=== PATIENT | female | born 1960 | race Caucasian/White ===

== ENCOUNTER → 2016-10-16 | Outpatient (CLI) | payer OTHER ==
[~2016-10-16] MED LIST: ASPI-435 PO; HMLI SC; LISI-729 PO; LSN25 PO; METF1TAB53 PO; NAPR-1169 PO; SAXA1TAB PO; TPRSR50 PO; USTE90IN IM; stelara SC
--- NOTE | 2016-10-16 09:20 | DIAGNOSTIC IMAGING REPORT ---
BILIARY ULTRASOUND CLINICAL HISTORY: Nonalcoholic steatohepatitis COMPARISON STUDY: 06/08/2015 FINDINGS: Liver demonstrates coarsened echotexture. No focal masses are visualized. The liver measuring 20 cm in length. No focal pancreatic masses are visualized. The gallbladder. Sonographically normal. There was no gallbladder wall thickening and no pericholecystic fluid. There was no ductal dilatation. The common bile duct measured 6 mm. There is no right-sided hydronephrosis. There are shadowing echogenic foci within the right kidney consistent with calculi. The largest measures 12 mm. IMPRESSION: 1. Coarsened hepatic echotexture, without evidence of focal mass. The findings are consistent with cirrhosis/hepatitis. 2. Ultrasonographically normal gallbladder. 3. No ductal dilatation 4. Right-sided nephrolithiasis Electronically signed by: Lebron Chavis M.D. 10/16/2016 9:19 AM Dictated Date/Time: 10/16/2016 9:16 AM
== END | disposition home or self-care (01) ==
LOC: C.ULTR 06:41
DX: K75.81 Nonalcoholic steatohepatitis (NASH) (principal); N20.0 Calculus of kidney

== ENCOUNTER → 2016-10-26 | Outpatient (CLI) | payer OTHER ==
[2016-10-26 08:40] LABS: HEMATOCRIT 37.1 % (37-47); MEAN CELL VOLUME 88.3 fL (80-100); MEAN CORPUSCULAR HEMOGLOBIN 31.2 pg (25-34); MEAN CORPUSCULAR HGB CONC 35.3 g/dl (32-36); MEAN PLATELET VOLUME 10.5 fL (7.4-10.4); PLATELET COUNT 187 K/uL (130-400); WHITE BLOOD COUNT 5.71 K/uL (4.8-10.8)
[2016-10-26 09:10] LABS: ESTIMATED AVERAGE GLUCOSE 192 mg/dl; HA1C FLAG Normal (Normal)
[2016-10-26 09:17] LABS: ALT/SGPT 28 U/L (12-78); BLOOD UREA NITROGEN 15 mg/dl (7-18); BUN/CREATININE RATIO 24.1 (10-20); CALCIUM 9.5 mg/dl (8.5-10.1); CARBON DIOXIDE 27 mmol/L (21-32); CHLORIDE 104 mmol/L (98-107); CREATININE 0.63 mg/dl (0.60-1.20); GLUCOSE 198 mg/dl (70-99); POTASSIUM 4.2 mmol/L (3.5-5.1); SODIUM 140 mmol/L (136-145)
[2016-10-26 09:27] LABS: ALB/GLOB RATIO 1.2 (0.9-2); ALKALINE PHOSPHATASE 96 U/L (45-117); AST/SGOT 22 U/L (15-37); THYROID STIMULATING HORMONE 0.486 uIu/ml (0.300-4.500)
== END | disposition home or self-care (01) ==
LOC: C.LAB 07:06
PROVIDERS: ATTEND Family Medicine
DX: E06.3 Autoimmune thyroiditis (principal); E11.9 Type 2 diabetes mellitus without complications; Z79.4 Long term (current) use of insulin; K74.60 Unspecified cirrhosis of liver

== ENCOUNTER → 2017-02-05 | Day surgery (SDC) | payer OTHER ==
[2017-02-03 08:10] VITALS: BMI 33.0
[~2017-02-05] VITALS: Ht 170.2 cm; Wt 95.5 kg
[~2017-02-05] MED LIST changes: +LIDOCAINE HCL 2% 2 ML VIAL (20MG/ML) ONE; -LISI-729 PO; +ONDA4TAB10 SL; +OXYC-57 PO; +PROPOFOL IV EMULSION 10 MG/ML 20 ML VIAL IV ONE; -SAXA1TAB PO; +SODIUM CHLORIDE 0.9% 500ML 500 ML IV ONE; +TAMS0.4C38 PO; -stelara SC
[2017-02-05 12:18] VITALS: Ht 170.2 cm; Wt 95.5 kg
--- NOTE | 2017-02-05 13:24 | Endo History and Physical ---
History & Physical Date of Service: Feb 05, 2017. Chief Complaint: BLOOD IN STOOL Referring Physician: DR. LIZAMA/ DR. RAMIRES History of Present Illness blood in stool last colon by Dr Lester Past Surgical History Hx Cardiac Surgery: No Hx Internal Defibrillator: No Hx Pacemaker: No Hx Abdominal Surgery: Yes (JULIETH) Hx of Implantable Prosthesis: No Hx Post-Op Nausea and Vomiting: No Hx Cancer Surgery: No Hx Thoracic Surgery: No Hx Orthopedic: Yes (RIGHT SHOULDER ARTHROSCOPY) Hx Urinary Tract Surgery: No Family History None Social History Smoking Status: Never Smoker Hx Substance Use: No Hx Alcohol Use: No Allergies Coded Allergies: Latex1 -Allergic Contact Dermititis (Unverified Allergy, Mild, ITCHING, ) Sulfa Drugs (Verified Allergy, Mild, LEG SWELLING, 02/05/17) Current Medications Reported Home Medications Medications Dose Route/Sig Max Daily Dose Days Date Category Stelara (Ustekinumab) 90 Mg/Ml Inj 1 Dose IM Q 10 WEEKS 02/03/17 Reported Glucophage Ext Rel (Metformin Hcl) 1,000 Mg Tab 1,000 Mg PO BID 02/03/17 Reported Lisinopril 2.5 Mg Tab 2.5 Mg PO QAM 02/03/17 Reported Humalog (Insulin Human Lispro) Inj 30 Units SC BEFORE SUPPER 08/23/15 Reported Humalog (Insulin Human Lispro) Inj 20 Units SC BEFORE LUNCH 08/23/15 Reported Naprosyn (Naproxen) 500 Mg Tab 500 Mg PO BID 08/23/15 Reported Metoprolol Succinate ER (Metoprolol Succinate) 50 Mg Tabcr 50 Mg PO BID 11/26/13 Reported Aspirin 81 (Aspirin) 81 Mg Tab 81 Mg PO QAM 11/26/13 Reported Vital Signs Weight (Kilograms): 95.45 Height (Feet): 5 Height (Inches): 7 Date Time Temp Pulse Resp B/P (MAP) Pulse Ox O2 Delivery O2 Flow Rate FiO2 02/05/17 12:42 36.4 72 20 148/79 (102) 98 Room Air Physical Exam AAOx3 Nls1s2 Lungs CTA Abd soft NT/ND + BS - CCE Assessment and Plan for colonoscopy today
--- NOTE | 2017-02-05 13:56 | Discharge Instructions ---
Endoscopy Patient Instructions Date / Procedure(s) Performed Feb 05, 2017. Colonoscopy Allergy Information Coded Allergies: Latex1 -Allergic Contact Dermititis (Unverified Allergy, Mild, ITCHING, ) Sulfa Drugs (Verified Allergy, Mild, LEG SWELLING, 02/05/17) Discharge Date / Findings Feb 05, 2017. polypremoved hemorrhids Medication Instructions Restart Stopped Medication(s): Reported Home Medications Medications Dose Route/Sig Max Daily Dose Days Date Category Stelara (Ustekinumab) 90 Mg/Ml Inj 1 Dose IM Q 10 WEEKS 02/03/17 Reported Glucophage Ext Rel (Metformin Hcl) 1,000 Mg Tab 1,000 Mg PO BID 02/03/17 Reported Lisinopril 2.5 Mg Tab 2.5 Mg PO QAM 02/03/17 Reported Humalog (Insulin Human Lispro) Inj 30 Units SC BEFORE SUPPER 08/23/15 Reported Humalog (Insulin Human Lispro) Inj 20 Units SC BEFORE LUNCH 08/23/15 Reported Naprosyn (Naproxen) 500 Mg Tab 500 Mg PO BID 08/23/15 Reported Metoprolol Succinate ER (Metoprolol Succinate) 50 Mg Tabcr 50 Mg PO BID 11/26/13 Reported Aspirin 81 (Aspirin) 81 Mg Tab 81 Mg PO QAM 11/26/13 Reported Reported Home Medications Medications Dose Route/Sig Max Daily Dose Days Date Category Stelara (Ustekinumab) 90 Mg/Ml Inj 1 Dose IM Q 10 WEEKS 02/03/17 Reported Glucophage Ext Rel (Metformin Hcl) 1,000 Mg Tab 1,000 Mg PO BID 02/03/17 Reported Lisinopril 2.5 Mg Tab 2.5 Mg PO QAM 02/03/17 Reported Humalog (Insulin Human Lispro) Inj 30 Units SC BEFORE SUPPER 08/23/15 Reported Humalog (Insulin Human Lispro) Inj 20 Units SC BEFORE LUNCH 08/23/15 Reported Naprosyn (Naproxen) 500 Mg Tab 500 Mg PO BID 08/23/15 Reported Metoprolol Succinate ER (Metoprolol Succinate) 50 Mg Tabcr 50 Mg PO BID 11/26/13 Reported Aspirin 81 (Aspirin) 81 Mg Tab 81 Mg PO QAM 11/26/13 Reported Provider Instructions Activity Restrictions - No exercising or heavy lifting for 24 hours. - Do not drink alcohol the day of the procedure. - Do not drive a car or operate machinery until the day after the procedure. - Do not make any important decisions or sign important papers in 24 hours after the procedure. Following Day: - Return to full activity which may include returning to work/school. Diet Start your diet with liquids and light foods (jello, soup, juice, toast). Then eat your usual diet if not nauseated. Treatment For Common After Affects For mild abdominal pain, bloating, or excessive gas: - Rest - Eat lightly - Lie on right side Follow-Up Information Follow-up with DR. LIZAMA/ DR. RAMIRES as scheduled Anesthesia Information What You Should Know You have had a procedure that required some medicine to reduce anxiety and discomfort. This treatment is called moderate sedation. After receiving the treatment, you may be sleepy, but you will be able to breathe on your own. The effects of the treatment may last for several hours. Follow these instructions along with Activity/Diet recommendations noted above: * Do NOT do anything where dizziness or clumsiness would be dangerous. * Rest quietly at home today, then you can be up and about tomorrow. * Have a responsible person stay with you the rest of today. * You may have had an I.V. today. If so, you may take the dressing off later today. Recommendations Call your doctor if: * Trouble breathing * Continuous vomiting for more than 24 hours * Temperature above 101 degrees * Severe abdominal pain or bloating * Pain not relieved by pain medicine ordered * There is increased drainage or redness from any incision * A large amount of rectal bleeding greater than 2-3 tablespoons. (If you had a polyp/s removed or have hemorrhoids, a small amount of blood - from the rectum is to be expected.) * You have any unanswered questions or concerns. IN THE EVENT OF A SERIOUS EMERGENCY, GO TO THE NEAREST EMERGENCY ROOM Your discharge instructions were prepared by provider Shady Fagan. Patient Instructions Signature Page Marybel Merchant Patient (or Guardian) Signature/Date: I have read and understand the instructions given to me by my caregivers. Caregiver/RN/Doctor Signature/Date: The above-named patient and/or guardian has received patient instructions on this date. + Original Patient Signature Page (only) stays with chart. Please make copy for patient.
--- NOTE | 2017-02-05 14:05 | GI REPORT ---
Procedure Date: 02/05/2017 1:20 PM Procedure: Colonoscopy Indications: Heme positive stool Medicines: Propofol per Anesthesia Complications: No immediate complications. Estimated blood loss: Minimal. Estimated Blood Loss: Estimated blood loss was minimal. Procedure: Pre-Anesthesia Assessment: - Prior to the procedure, a History and Physical was performed, and patient medications and allergies were reviewed. The patient's tolerance of previous anesthesia was also reviewed. The risks and benefits of the procedure and the sedation options and risks were discussed with the patient. All questions were answered, and informed consent was obtained. Prior Anticoagulants: The patient has taken no previous anticoagulant or antiplatelet agents. ASA Grade Assessment: III - A patient with severe systemic disease. After reviewing the risks and benefits, the patient was deemed in satisfactory condition to undergo the procedure. After I obtained informed consent, the scope was passed under direct vision. Throughout the procedure, the patient's blood pressure, pulse, and oxygen saturations were monitored continuously. The scope was introduced through the anus and advanced to the terminal ileum, with identification of the appendiceal orifice and IC valve. The colonoscopy was performed without difficulty. The patient tolerated the procedure well. The quality of the bowel preparation was good. Findings: The perianal and digital rectal examinations were normal. Pertinent negatives include normal sphincter tone, no palpable rectal lesions and no anal lesion or abnormality was detected. A 3 mm polyp was found in the cecum. The polyp was sessile. The polyp was removed with a cold biopsy forceps. Resection and retrieval were complete. Estimated blood loss was minimal. Verification of patient identification for the specimen was done by the physician and identification technician using the patient's name and medical record number. Non-bleeding internal hemorrhoids were found during retroflexion. The hemorrhoids were mild and small. The exam was otherwise without abnormality. The terminal ileum appeared normal. No additional abnormalities were found on retroflexion. Impression: - One 3 mm polyp in the cecum, removed with a cold biopsy forceps. Resected and retrieved. - Non-bleeding internal hemorrhoids. - The examination was otherwise normal. - The examined portion of the ileum was normal. Recommendation: - Discharge patient to home (ambulatory). - Resume regular diet. - Continue present medications. - Await pathology results. - Return to referring physician as previously scheduled. MD Shady White MD 02/05/2017 2:05:45 PM This report has been signed electronically. Note Initiated On: 02/05/2017 1:20 PM I attest to the content of the Intraoperative Record and orders documented therein, exceptions below
--- NOTE | 2017-02-05 14:29 | Anesthesiology Progress Note ---
Anesthesia Post Op Note Date & Time Feb 05, 2017 at 14:29 Vital Signs Pain Intensity: 0 Vital Signs Past 12 Hours Date Time Temp Pulse Resp B/P (MAP) Pulse Ox O2 Delivery O2 Flow Rate FiO2 02/05/17 14:15 77 20 149/64 (92) 97 Room Air 02/05/17 13:57 79 20 111/61 (78) 94 Room Air 02/05/17 12:42 36.4 72 20 148/79 (102) 98 Room Air Notes Mental Status: alert / awake / arousable, participated in evaluation Pt Amnestic to Procedure: Yes Nausea / Vomiting: adequately controlled Pain: adequately controlled Airway Patency, RR, SpO2: stable & adequate BP & HR: stable & adequate Hydration State: stable & adequate Anesthetic Complications: no major complications apparent
[2017-02-05 14:49] VITALS: BP 138/82; PULSE 73; O2SAT 97
== END | disposition home or self-care (01) ==
LOC: C.GI 12:07
PROVIDERS: ATTEND Internal Medicine Gastroenterology
DX: R19.5 Other fecal abnormalities (principal); K64.8 Other hemorrhoids; D12.0 Benign neoplasm of cecum; Z79.82 Long term (current) use of aspirin

== ENCOUNTER → 2017-02-17 | Outpatient (CLI) | payer OTHER ==
[~2017-02-17] MED LIST changes: -LIDOCAINE HCL 2% 2 ML VIAL (20MG/ML) ONE; -ONDA4TAB10 SL; -OXYC-57 PO; -PROPOFOL IV EMULSION 10 MG/ML 20 ML VIAL IV ONE; -SODIUM CHLORIDE 0.9% 500ML 500 ML IV ONE; -TAMS0.4C38 PO
== END | disposition home or self-care (01) ==
LOC: C.LAB 06:48
PROVIDERS: ATTEND Family Medicine
DX: E11.9 Type 2 diabetes mellitus without complications (principal)

== ENCOUNTER → 2017-04-02 | Outpatient (CLI) | payer OTHER ==
[2017-04-02 09:37] LABS: BASO % 0.3 %; BASO ABS # 0.02 K/uL (0-0.2); COMPLETE YES; EOS % 3.1 %; HEMATOCRIT 38.6 % (37-47); IG% 0.2 %; LYMPH ABS # 2.36 K/uL (1.2-3.4); MEAN CELL VOLUME 88.1 fL (80-100); MEAN CORPUSCULAR HEMOGLOBIN 31.3 pg (25-34); MEAN CORPUSCULAR HGB CONC 35.5 g/dl (32-36); MEAN PLATELET VOLUME 10.6 fL (7.4-10.4); MONO % 9.8 %; NEUT % 47.6 %; PLATELET COUNT 192 K/uL (130-400); RED BLOOD COUNT 4.38 M/uL (4.2-5.4); WHITE BLOOD COUNT 6.05 K/uL (4.8-10.8)
[2017-04-02 10:17] LABS: ALT/SGPT 39 U/L (12-78); AST/SGOT 40 U/L (15-37); BLOOD UREA NITROGEN 12 mg/dl (7-18); BUN/CREATININE RATIO 14.2 (10-20); CALCIUM 9.2 mg/dl (8.5-10.1); CARBON DIOXIDE 25 mmol/L (21-32); CHLORIDE 102 mmol/L (98-107); CREATININE 0.83 mg/dl (0.60-1.20); GLUCOSE 276 mg/dl (70-99); POTASSIUM 4.1 mmol/L (3.5-5.1); SODIUM 137 mmol/L (136-145)
[2017-04-02 10:20] LABS: ALKALINE PHOSPHATASE 110 U/L (45-117)
== END | disposition home or self-care (01) ==
LOC: C.LAB 06:31
DX: K75.81 Nonalcoholic steatohepatitis (NASH) (principal)

== ENCOUNTER → 2017-06-05 | Outpatient (CLI) | payer OTHER ==
[2017-06-05 10:04] LABS: CHOLESTEROL/HDL RATIO 3.8; THYROID STIMULATING HORMONE 1.06 uIu/ml (0.300-4.500)
== END ==
LOC: C.LAB 06:36
PROVIDERS: ATTEND Internal Medicine Cardiovascular Disease
DX: E11.9 Type 2 diabetes mellitus without complications (principal); E05.00 Thyrotoxicosis with diffuse goiter without thyrotoxic crisis or storm

== ENCOUNTER 2017-07-04 02:53 | Emergency (ER) | payer OTHER ==
[~2017-07-04] VITALS: Ht 168.9 cm; Wt 95.3 kg
[2017-07-04 02:56] VITALS: TEMP 36.9; Ht 168.9 cm; Wt 95.3 kg
[2017-07-04 03:49] LABS: BASO % 0.1 %; BASO ABS # 0.01 K/uL (0-0.2); COMPLETE YES; EOS % 0.8 %; HEMATOCRIT 43.2 % (37-47); IG% 0.1 %; LYMPH % 17.1 %; LYMPH ABS # 1.24 K/uL (1.2-3.4); MEAN CORPUSCULAR HGB CONC 33.3 g/dl (32-36); MEAN PLATELET VOLUME 10.2 fL (7.4-10.4); NEUT % 73.9 %; PLATELET COUNT 172 K/uL (130-400); WHITE BLOOD COUNT 7.26 K/uL (4.8-10.8)
[2017-07-04 03:52] LABS: URINE APPEARANCE CLEAR (CLEAR); URINE BILIRUBIN NEG (NEG); URINE COLOR YELLOW; URINE EPITHELIAL CELL AUTO >30 /lpf (0-5); URINE NITRITE NEG (NEG); UROBILINOGEN NEG (NEG); ZZUR CULT IF INDIC CLEAN CATCH YES
[2017-07-04 04:03] LABS: MANUAL MICROSCOPIC REQUIRED? NO; REVIEW REQ? YES
[2017-07-04 04:11] LABS: ALKALINE PHOSPHATASE 155 U/L (45-117); ALT/SGPT 44 U/L (12-78); AST/SGOT 34 U/L (15-37); BLOOD UREA NITROGEN 17 mg/dl (7-18); BUN/CREATININE RATIO 13.7 (10-20); CALCIUM 9.9 mg/dl (8.5-10.1); CARBON DIOXIDE 24 mmol/L (21-32); CHLORIDE 100 mmol/L (98-107); CREATININE 1.21 mg/dl (0.60-1.20); GLUCOSE 395 mg/dl (70-99); POTASSIUM 4.6 mmol/L (3.5-5.1); SODIUM 134 mmol/L (136-145)
[2017-07-04] MEDS ORDERED: NovoLIN-R INSULIN PER UNIT CHARGE IV STA ×2 (04:17→05:38)
[2017-07-04] MEDS ORDERED: TAMSULOSIN HCL 0.4 MG CAP PO ONE (05:00)
--- NOTE | 2017-07-04 05:48 | EMERGENCY ROOM VISIT NOTE ---
History Report prepared by Parker: Thelma Kolb Under the Supervision of: Dr. Cindy Mejía D.O. First contact with patient: 03:01 Chief Complaint: FLANK PAIN Stated Complaint: I THINK I HAVE A KIDNEY STONE,RT SIDE History of Present Illness The patient is a 56 year old female who presents to the Emergency Room with complaints of worsening flank pain starting last night. When the patient was going to bed, she noticed that she had aching in her flank bilaterally. She was unable to get comfortable and the pain slowly worsened. Around 0130, she took some naproxen which took the edge off. She currently rates her discomfort as a 5 /10 in severity. The pain seems to be worse on the right side. She states that it feels like a kidney stone. The pain is not moving elsewhere. She is nauseous. She denies any fever, chills, vomiting, urinary symptoms, change in bowel movements, leg swelling, or cough. She gets kidney stones every couple of years. She has had kidney stones on both sides. She is usually able to pass them. She notes that she has been having sinus drainage for a while. Source of History: patient Onset: last night Position: back (bilateral flank) Symptom Intensity: 5/10 Quality: ache Timing: worsening Modifying Factors (Relieving): other (naproxen) Associated Symptoms: + nausea, No fevers, No chills, No cough, No vomiting, No urinary symptoms Note: Pt denies change in bowel movement, leg swelling. Review of Systems See HPI for pertinent positives & negatives. A total of 10 systems reviewed and were otherwise negative. Past Medical & Surgical Medical Problems: (1) Graves' disease (2) Hypertension (3) Kidney stone (4) Kidney stone Family History Kidney stones Social History Smoking Status: Never Smoker Drug Use: none Marital Status: Housing Status: lives with family Occupation Status: employed Current/Historical Medications Scheduled Aspirin (Aspirin 81), 81 MG PO QAM Insulin Lispro (Humalog), 20 UNITS SC before lunch Insulin Lispro (Humalog), 30 UNITS SC before supper Lisinopril (Lisinopril), 2.5 MG PO QAM Metformin Hcl (Glucophage Ext Rel), 1,000 MG PO BID Metoprolol Succinate (Metoprolol Succinate ER), 50 MG PO BID Naproxen (Naprosyn), 500 MG PO BID Ondasetron Odt (Zofran Odt), 4 MG SL Q8 Tamsulosin Hcl (Flomax), 0.4 MG PO DAILY Ustekinumab (Stelara), 1 DOSE IM Q 10 WEEKS Scheduled PRN Oxycodone/Acetaminophen 5MG/325MG (Percocet 5MG/325MG), 1 TAB PO Q6 PRN for Pain Allergies Coded Allergies: Latex1 -Allergic Contact Dermititis (Unverified Allergy, Mild, ITCHING, ) Sulfa Antibiotics (Verified Allergy, Mild, LEG SWELLING TO SULFA DRUGS, ) Physical Exam Vital Signs Date Time Temp Pulse Resp B/P (MAP) Pulse Ox O2 Delivery O2 Flow Rate FiO2 07/04/17 06:31 90 15 138/73 95 07/04/17 02:56 36.9 84 18 150/75 97 Room Air Physical Exam GENERAL: alert, well appearing, well nourished, no distress, non-toxic EYE EXAM: normal conjunctiva, PERRL and EOM's grossly intact OROPHARYNX: no exudate, no erythema, lips, buccal mucosa, and tongue normal and mucous membranes are moist NECK: supple, no nuchal rigidity, no adenopathy, non-tender LUNGS: Clear to auscultation. Normal chest wall mechanics HEART: no murmurs, S1 normal and S2 normal ABDOMEN: abdomen soft, non-tender, normo-active bowel sounds, no masses, no rebound or guarding. BACK: Back is symmetrical on inspection and there is no deformity, no midline tenderness, no CVA tenderness. Mild reproducible right low back tenderness. SKIN: no rashes and no bruising UPPER EXTREMITIES: upper extremities are grossly normal. LOWER EXTREMITIES: No pitting edema. NEURO EXAM: Normal sensorium, cranial nerves II-XII grossly intact, normal speech, no gross weakness of arms, no gross weakness of legs. Medical Decision & Procedures ER Provider Diagnostic Interpretation: Xray results have been interpreted by me. KUB: Scattered bowel gas and stool. Two stones seen in the area of the right kidney. Radiology results have been interpreted by the [facility] radiologist and reviewed by me. US Renal: Comparison: Ultrasound 10/26/16. There is hydronephrosis of the right kidney with proximal hydroureter. An 8 mm stone is visualized at the right kidney midpole. Right kidney measures 13.7 cm. No hydronephrosis of the left kidney, which measures 13.0 cm. Evaluation of the urinary bladder demonstrates a left ureteral jet. The right ureteral jet is not seen. Borderline splenomegaly measuring 13.2 cm. Heterogenous liver with nodular surface suggesting cirrhosis. Laboratory Results 07/04/17 03:25 Red Blood Count 4.80, Mean Corpuscular Volume 90.0, Mean Corpuscular Hemoglobin 30.0, Mean Corpuscular Hemoglobin Concent 33.3, Mean Platelet Volume 10.2, Neutrophils (%) (Auto) 73.9, Lymphocytes (%) (Auto) 17.1, Monocytes (%) (Auto) 8.0, Eosinophils (%) (Auto) 0.8, Basophils (%) (Auto) 0.1, Neutrophils # (Auto) 5.36, Lymphocytes # (Auto) 1.24, Monocytes # (Auto) 0.58, Eosinophils # (Auto) 0.06, Basophils # (Auto) 0.01 07/04/17 03:25 Test 07/04/17 03:23 07/04/17 03:25 07/04/17 05:55 Urine Color YELLOW Urine Appearance CLEAR (CLEAR) Urine pH 5.0 (4.5-7.5) Urine Specific [place] 1.040 (1.000-1.030) Urine Protein NEG (NEG) Urine Glucose (UA) 3+ (NEG) Urine Ketones TRACE (NEG) Urine Occult Blood 3+ (NEG) Urine Nitrite NEG (NEG) Urine Bilirubin NEG (NEG) Urine Urobilinogen NEG (NEG) Urine Leukocyte Esterase NEG (NEG) Urine WBC (Auto) 1-5 /hpf (0-5) Urine RBC (Auto) 10-30 /hpf (0-4) Urine Hyaline Casts (Auto) 1-5 /lpf (0-5) Urine Epithelial Cells (Auto) >30 /lpf (0-5) Urine Bacteria (Auto) 1+ (NEG) White Blood Count 7.26 K/uL (4.8-10.8) Red Blood Count 4.80 M/uL (4.2-5.4) Hemoglobin 14.4 g/dL (12.0-16.0) Hematocrit 43.2 % (37-47) Mean Corpuscular Volume 90.0 fL (80-100) Mean Corpuscular Hemoglobin 30.0 pg (25-34) Mean Corpuscular Hemoglobin Concent 33.3 g/dl (32-36) Platelet Count 172 K/uL (130-400) Mean Platelet Volume 10.2 fL (7.4-10.4) Neutrophils (%) (Auto) 73.9 % Lymphocytes (%) (Auto) 17.1 % Monocytes (%) (Auto) 8.0 % Eosinophils (%) (Auto) 0.8 % Basophils (%) (Auto) 0.1 % Neutrophils # (Auto) 5.36 K/uL (1.4-6.5) Lymphocytes # (Auto) 1.24 K/uL (1.2-3.4) Monocytes # (Auto) 0.58 K/uL (0.11-0.59) Eosinophils # (Auto) 0.06 K/uL (0-0.5) Basophils # (Auto) 0.01 K/uL (0-0.2) RDW Standard Deviation 39.5 fL (36.4-46.3) RDW Coefficient of Variation 12.0 % (11.5-14.5) Immature Granulocyte % (Auto) 0.1 % Immature Granulocyte # (Auto) 0.01 K/uL (0.00-0.02) Anion Gap 10.0 mmol/L (3-11) Est Creatinine Clear Calc Drug Dose 59.5 ml/min Estimated GFR () 57.1 Estimated GFR (Non- 49.3 BUN/Creatinine Ratio 13.7 (10-20) Calcium Level 9.9 mg/dl (8.5-10.1) Total Bilirubin 0.5 mg/dl (0.2-1) Aspartate Amino Transf (AST/SGOT) 34 U/L (15-37) Alanine Aminotransferase (ALT/SGPT) 44 U/L (12-78) Alkaline Phosphatase 155 U/L (45-117) Total Protein 7.5 gm/dl (6.4-8.2) Albumin 3.7 gm/dl (3.4-5.0) Globulin 3.8 gm/dl (2.5-4.0) Albumin/Globulin Ratio 1.0 (0.9-2) Beta-Hydroxybutyric Acid mg/dL (0.2-2.81) Chemistry Specimen Hemolysis Bedside Glucose 298 mg/dl (70-90) Laboratory results per my review. Medications Administered Medications (Trade) Dose Ordered Sig/Steph Route Start Time Stop Time Status Last Admin Dose Admin Insulin Human Regular (novoLIN-R U-100 PER UNIT) 4 units NOW STAT IV 07/04/17 04:17 07/04/17 04:18 DC 07/04/17 05:21 4 UNITS Tamsulosin HCl (Flomax Cap) 0.4 mg NOW ONCE PO 07/04/17 05:00 07/04/17 05:01 DC 07/04/17 05:20 0.4 MG ECG Indication: nausea Rate (beats per minute): 78 Rhythm: sinus rhythm Findings: RBBB, no acute ischemic change, no ectopy, other (normal axis) ED Course 0323: The patient was evaluated in room A9B. A complete history and physical exam was performed. 0417: Ordered Insulin Human Regular 4 units IV. 0500: Ordered Flomax Cap 0.4 mg PO. 0534: I reevaluated the patient. She is resting. I updated her on the results. She notes that her family doctor recently changed her diabetes medication and her sugar has been running high. Her PCP is aware of this and will follow up with her. 0538: Ordered Insulin Human Regular 10 units IV. 0603: Upon reevaluation, the patient is feeling better. I discussed the findings and the treatment plan with the patient. She verbalizes agreement and understanding. She was discharged home. Medical Decision Differential diagnosis: Etiologies such as renal colic, appendicitis, diverticulitis, mesenteric ischemia, aortic pathology, infections, inflammatory bowel disease, PUD, biliary pathology, UTI, as well as others were entertained. Pt describes likely renal colic given several similar prior episodes. Hematuria noted on UA, no other evidence of infectious etiology. Patient with top normal baseline creatinine of 1.2, which may be secondary to medications and diabetic status also. Do not feel this is an acute or abrupt change in her baseline. Patient with no fevers or recurrent vomiting here. Pain controlled. Discussed with patient continue straining of urine, symptoms to watch and return for, follow-up with urology given size of stone noted in the right kidney. Did not feel patient warranted repeat CTs that she has had several in the past with similar presentation. Patient has never needed any intervention or procedure, has always been able to pass the stones spontaneously. Patient comfortable going home and was agreeable with plan. Discussed patient's hyperglycemia, her primary care physician and recently made medication changes in her sugars have been slightly more elevated recently. She states her PCP was aware of this and told her to wait a week before the make any additional adjustments Medication Reconcilliation Current Medication List: was personally reviewed by me Blood Pressure Screening Patient's blood pressure: Elevated blood pressure Blood pressure disposition: Elevated BP felt to be situational Impression Primary Impression: Right flank pain Additional Impressions: Renal colic Hematuria Hyperglycemia Scribe Attestation The scribe's documentation has been prepared under my direction and personally reviewed by me in its entirety. I confirm that the note above accurately reflects all work, treatment, procedures, and medical decision making performed by me. Departure Information Dispostion Home / Self-Care Prescriptions Ondasetron Odt (ZOFRAN ODT) 4 Mg Tab 4 MG SL Q8 for Nausea, #20 TAB Prov: Cindy Mejía, DO 07/04/17 Oxycodone/Acetaminophen 5MG/325MG (PERCOCET 5MG/325MG) Tab 1 TAB PO Q6 Y for Pain, #14 TAB Prov: Cindy Mejía, DO 07/04/17 Tamsulosin Hcl (FLOMAX) 0.4 Mg Cap 0.4 MG PO DAILY, #10 CAP Prov: Cindy Mejía, DO 07/04/17 Referrals Saranya Nichole M.D. (PCP) Forms HOME CARE DOCUMENTATION FORM, IMPORTANT VISIT INFORMATION Patient Instructions Kidney Stones - [facility] Additional Instructions Please take the flomax daily until you pass the stone. Please strain your urine daily until you pass the stone. You may use the pain and nausea medicine as needed. Do not take the pain medicine and drive. Please monitor for constipation. Please continue checking your sugars daily and follow-up closely with your family doctor to continue making medication adjustments. If you have any worsening pain, develop fevers, vomiting, notice any changes to your urine, have higher sugar readings, or you develop any other new or concerning symptoms , please return to the emergency room. Problem Qualifiers Additional Impressions: Hematuria Hematuria type: unspecified type Qualified Codes: R31.9 - Hematuria, unspecified
[2017-07-04] MEDS ORDERED: OXYCODONE/ACETAMINOPHEN 5-325 TAB PO ONE (06:15)
[2017-07-04] MEDS ORDERED: OXYC-57 PO (06:22)
[2017-07-04] MEDS ORDERED: TAMS0.4C38 PO (06:22)
[2017-07-04] MEDS ORDERED: ONDA4TAB10 SL (06:22)
[2017-07-04 06:31] VITALS: BP 138/73; PULSE 90; O2SAT 95
--- NOTE | 2017-07-04 07:21 | DIAGNOSTIC IMAGING REPORT ---
KUB CLINICAL HISTORY: kidney stone nephrocalcinosis COMPARISON STUDY: 08/23/2015 FINDINGS: Several right renal calcifications unchanged in the prior study. Clinical calcification right lateral soft tissue pelvis. Nonobstructive bowel pattern. Moderate degenerative change osseous structures. IMPRESSION: 1. Stable right renal nephrocalcinosis. 2. Calcification right soft tissue pelvis versus right ureteral calcification. The above report was generated using voice recognition software. It may contain grammatical, syntax or spelling errors. Electronically signed by: Gold Tarango M.D. 07/04/2017 7:19 AM Dictated Date/Time: 07/04/2017 7:18 AM
--- NOTE | 2017-07-04 07:40 | DIAGNOSTIC IMAGING REPORT ---
ULTRASOUND KIDNEYS AND BLADDER CLINICAL HISTORY: Right flank pain. COMPARISON STUDY: Renal ultrasound dated 08/23/2015. Abdominal CT dated 11/26/2013. TECHNIQUE: Real-time, grayscale, and color flow sonography of the kidneys and bladder is performed. Images are reviewed in the transverse and longitudinal planes. FINDINGS: Kidneys: The kidneys are normal in size and echotexture. The right kidney measures 13.7 x 6.6 x 5.6 cm and the left kidney measures 13.0 x 6.1 x 4.1 cm. There is moderate right hydroureteronephrosis. No hydronephrosis is seen on the left. Shadowing calculi are identified in both kidneys. There is no sonographic evidence of contour deforming renal mass lesion. No perinephric fluid is identified. Bladder: The bladder is decompressed and not well evaluated. A left ureteral jet was seen. Upper abdomen: Survey images of the spleen show mild splenomegaly. The spleen measures up to 13.2 cm in length. The liver demonstrates cirrhotic morphology and heterogeneous echotexture. IMPRESSION: 1. The kidneys are normal in size. No left-sided hydronephrosis is seen. 2. There is moderate right hydroureteronephrosis, likely related to an obstructing ureteral calculus. The obstructing calculus itself was not visualized. 3. Nonobstructing calculi are seen in both kidneys. 4. Cirrhotic liver morphology and splenomegaly. Electronically signed by: Sumeet Ventura M.D. 07/04/2017 7:38 AM Dictated Date/Time: 07/04/2017 7:04 AM
== END 2017-07-04 06:33 | disposition home or self-care (01) ==
LOC: C.EDB 02:54 → C.EDA 06:33
DX: N23 Unspecified renal colic (principal); R31.9 Hematuria, unspecified; R73.9 Hyperglycemia, unspecified; E05.90 Thyrotoxicosis, unspecified without thyrotoxic crisis or storm; I10 Essential (primary) hypertension; Z87.442 Personal history of urinary calculi

== ENCOUNTER → 2017-08-25 | Outpatient (CLI) | payer OTHER ==
[~2017-08-25] MED LIST changes: +ONDA4TAB10 SL; +OXYC-57 PO
--- NOTE | 2017-08-26 07:52 | MAMMOGRAPHY REPORT ---
BILATERAL DIGITAL SCREENING MAMMOGRAM TOMOSYNTHESIS WITH CAD: 08/25/2017 CLINICAL HISTORY: Routine screening. Patient has no complaints. TECHNIQUE: Breast tomosynthesis in addition to standard 2D mammography was performed. Current study was also evaluated with a Computer Aided Detection (CAD) system. COMPARISON: Comparison is made to exams dated: 12/06/2015 mammogram, 06/28/2014 mammogram, 06/24/2013 mammogram, 06/22/2012 mammogram, 06/17/2011 mammogram, and 06/13/2010 mammogram - [facility]. BREAST COMPOSITION: The tissue of both breasts is almost entirely fatty. FINDINGS: There are mild vascular calcifications in the breasts. Stable intramammary lymph nodes in the right upper outer quadrant. No suspicious mass, architectural distortion or cluster of suspiciou s microcalcifications is seen. IMPRESSION: ACR BI-RADS CATEGORY 1: NEGATIVE There is no mammographic evidence of malignancy. A 1 year screening mammogram is recommended. The pa tient will receive written notification of the results. Approximately 10% of breast cancers are not detected with mammography. A negative mammographic report should not delay biopsy if a clinically suggestive mass is present. Evelia Devlin M.D. ay/:08/25/2017 15:36:17 Advertising Strategist: Crissy Gonzales, [facility] letter sent: Normal 1/2 BI-RADS Code: ACR BI-RADS Category 1: Negative
== END | disposition home or self-care (01) ==
LOC: C.MAMM 15:11
PROVIDERS: ATTEND Family Medicine
DX: Z12.31 Encounter for screening mammogram for malignant neoplasm of breast (principal)

== ENCOUNTER → 2017-12-16 | Outpatient (CLI) | payer OTHER ==
[2017-12-16 09:57] LABS: ALBUMIN 3.9 gm/dl (3.4-5.0); ALT/SGPT 39 U/L (12-78); AST/SGOT 31 U/L (15-37); BLOOD UREA NITROGEN 16 mg/dl (7-18); CARBON DIOXIDE 28 mmol/L (21-32); CREATININE 0.75 mg/dl (0.60-1.20); GLUCOSE 178 mg/dl (70-99); POTASSIUM 4.4 mmol/L (3.5-5.1); SODIUM 139 mmol/L (136-145); TOTAL PROTEIN 7.6 gm/dl (6.4-8.2)
[2017-12-16 09:59] LABS: ALKALINE PHOSPHATASE 97 U/L (45-117)
[2017-12-16 10:14] LABS: HEMOGLOBIN A1C 8.5 % (4.5-5.6)
== END | disposition home or self-care (01) ==
LOC: C.LAB 06:46
PROVIDERS: ATTEND Family Medicine
DX: E11.9 Type 2 diabetes mellitus without complications (principal); E53.8 Deficiency of other specified B group vitamins; G60.3 Idiopathic progressive neuropathy